=== PATIENT | female | born 1985 | race American Indian/Alaskan Native ===

== ENCOUNTER 2017-11-13 05:47 | Day surgery (SDC) | payer MEDICAID ==
--- NOTE | 2017-11-12 12:18 | History and Physical Report ---
History of Present Illness Date of examination: 11/13/17 History of present illness: Patient has been reassessed/reevaluated. H&P has been reviewed. No interval changes. 32 YOBF with missed initial desired expected management but now desires surgical treatment Vital Signs: Patient Profile: 32 Years Old Female LMP: 07/20/2017 Height: 69 inches Weight: 444 pounds BMI: 65.56 Menstrual History: LMP (date): 07/20/2017 Past History : 3 Term Births: 1 Premature Births: 2 Living Children: 2 Para: 3 Mult. Births: 0 Prev : 2 Aborta: 0 Elect. Ab: 0 Spont. Ab: 0 Ectopics: 0 # 1 Delivery date: 06/26/2000 Weeks Gestation: 23 labor: yes Delivery type: Hours of labor: >36 Delivery location: [place] Infant Sex: Female weight: < 1lb Name: Franklyn Comments: PPROM demise # 2 Delivery date: 07/21/2002 Weeks Gestation: 32 Delivery type: Anesthesia type: spinal Delivery location: [facility] Infant Sex: Male weight: 3-6 Name: Dereck Comments: Cerclage placenta previa bleeding # 3 Delivery date: 12/22/2006 Weeks Gestation: 39 labor: no Delivery type: Anesthesia type: spinal Delivery location: [facility] Infant Sex: Male weight: 16-2 Name: Enzo Comments: 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 of genital herpes: no Partner hx. of genital herpes: no Hx of STD: none Current Allergies: * MAGNESIUM (Critical) Past Medical History: Diabetes (2009) Hypertension Hyperlipidemia Kidney Stone Morbid Obesity Past Surgical History: Cholecystectomy (2000) Kidney stones (2001) (2006) Cerclage (2001) Cerclage (2005) Family History Summary: Other family member - Has Family History of Diabetes - Entered On: 10/02/2017 Other family member - Has Family History of Hypertension - Entered On: 2016 Other family member - Has Family History of Lung Cancer - Entered On: 10/02/2017 Other family member - Has Family History Breast Cancer - Entered On: 10/02/2017 Other family member - Has No Family History of Ovarvian Cancer - Entered On: Social History: Patient is Unemployed administrative support coordinator Risk Factors: Smoked Tobacco Use: Former smoker Cigarettes: Yes -- 1 pack(s) per day, Year started: 2001 Year quit: 2017 Years Since Last Quit: 0 Drug use: no Alcohol use: yes Drinks per day: social Dietary Counseling: pn yes Review of Systems General Denies fever, chills, sweats, anorexia, fatigue, weakness, malaise, weight loss and sleep disorder. Complains of pelvic pain. Denies vaginal discharge, incontinence, dysuria, hematuria, urinary frequency, amenorrhea, menorrhagia, abnormal vaginal bleeding, genital sores, decreased libido, painful periods, painful sex, urinary urgency, hot flashes, vaginal dryness, vaginal itching and vaginal odor. CV Denies chest pains, palpitations, syncope, dyspnea on exertion, orthopnea, PND and peripheral edema. Resp Denies cough, dyspnea at rest, excessive sputum, hemoptysis, wheezing and pleurisy. GI Denies nausea, vomiting, diarrhea, constipation, change in bowel habits, abdominal pain, melena, hematochezia, jaundice, gas/bloating, indigestion/ heartburn, dysphagia and odynophagia. Breast Denies left breast lump, right breast lump, nipple discharge, bloody discharge from nipple, breast pain, abnormal mammogram and breast enlargement. Psych Denies depression, anxiety, irritability and mood swings. [Labs In-House] Past History Past Medical History: other (See HPI) Past Surgical History: Other (See HPI) Family history: other (See HPI) Medications and Allergies Allergies Allergy/AdvReac Type Severity Reaction Status Date / Time magnesium Allergy increased Verified 11/12/17 12:28 heart rate Home Medications Medication Instructions Recorded Confirmed Last Taken Type glipiZIDE [Glucotrol] 10 mg PO BID 12/29/14 11/12/17 Unknown History metFORMIN [Glucophage] 1,000 mg PO BID 12/29/14 11/12/17 Unknown History Oxycodone HCl/Acetaminophen 1 each PO Q4-6H PRN #20 tablet 02/02/15 11/12/17 Unknown Rx [Percocet 10-325 mg] ALBUTEROL NEB's [Proventil] 2.5 mg IH TID PRN 11/12/17 11/12/17 Unknown History Amoxicillin [Trimox CAP] 500 mg PO Q12H 11/12/17 11/12/17 Unknown History Hydroxyzine HCl [Hydroxyzine HCl] 10 mg PO Q12H 11/12/17 11/12/17 Unknown History Lisinopril [Zestril TAB] 40 mg PO DAILY 11/12/17 11/12/17 Unknown History Metoprolol [Lopressor TAB] 50 mg PO DAILY 11/12/17 11/12/17 Unknown History predniSONE [Deltasone] 20 mg PO BID 11/12/17 11/12/17 Unknown History Review of Systems Constitutional: other (See HPI) Exam - Physical Exam Narrative exam: HEENT: normocephalic, no lesions or deformities Neck/Thyroid: supple, thyroid normal Skin no significant abnormal lesions or rashes Chest: respiratory effort normal, clear to auscultation Breasts: skin/areolae normal, no masses, no nipple discharge, no erythema/warmth /tenderness, and axillae normal. 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 Questions answered. Patient desires definitive treatment Patient desires D&C Discussed risk of surgery including infection, bleeding and risk of perforating her uterus. Questions answered. Patient understands and desires to proceed (2) Diabetes 1.5, managed as type 2 Current Visit: No Status: Chronic (3) Morbid obesity with body mass index of 50 or higher Current Visit: No Status: Chronic
[2017-11-13] MEDS ORDERED: VERSED IV NR (06:00)
[2017-11-13] MEDS ORDERED: PEPCID PO NR (06:00)
[2017-11-13] MEDS ORDERED: LACTATED RINGERS 1,000 ML IV SCH (06:00)
[2017-11-13] MEDS ORDERED: SILVER NITRATE TP ONE (07:27)
[2017-11-13] MEDS ORDERED: SUBLIMAZE ONE (07:28)
[2017-11-13] MEDS ORDERED: METHERGINE IM ONE (07:28)
[2017-11-13] MEDS ORDERED: DIPRIVAN 10 MG/ML IV ONE (07:29)
[2017-11-13 07:33] LABS: Basophils # (Auto) 0.1 K/mm3 (0.0-0.1); Basophils % (Auto) 0.6 % (0.0-1.8); Eosinophils % (Auto) 0.1 % (0.0-4.3); Lymphocytes # (Auto) 2.1 K/mm3 (1.2-5.4); Mean Corpuscular HGB Conc 29 % (30-34); Mean Corpuscular Volume 71 fl (79-97); Monocytes # (Auto) 0.6 K/mm3 (0.0-0.8); Monocytes % (Auto) 6.8 % (0.0-7.3); Platelet Count 285 K/mm3 (140-440); Red Blood Count 4.97 M/mm3 (3.65-5.03); Red Cell Distribution Width 19.5 % (13.2-15.2)
[2017-11-13 07:35] VITALS: BP 182/93
[2017-11-13 07:37] LABS: Hematocrit 35.3 % (30.3-42.9); Hemoglobin 10.3 gm/dl (10.1-14.3); Mean Corpuscular Hemoglobin 21 pg (28-32)
--- NOTE | 2017-11-13 07:52 | Event Note ---
Date: 11/13/17 Surgery cancelled due patient's blood sugar> 400. Will treat MAB medically
== END 2017-11-13 05:48 | disposition home or self-care (01) ==
LOC: OR 05:47
PROVIDERS: ATTEND Obstetrics & Gynecology
DX: O02.1 Missed abortion (principal); O24.111 Pre-existing type 2 diabetes mellitus, in pregnancy, first trimester; E11.9 Type 2 diabetes mellitus without complications; O10.911 Unspecified pre-existing hypertension complicating pregnancy, first trimester; O99.281 Endocrine, nutritional and metabolic diseases complicating pregnancy, first trimester; E78.5 Hyperlipidemia, unspecified; O99.211 Obesity complicating pregnancy, first trimester; E66.01 Morbid (severe) obesity due to excess calories; Z68.43 Body mass index [BMI] 50.0-59.9, adult; Z90.49 Acquired absence of other specified parts of digestive tract; Z98.890 Other specified postprocedural states; Z87.891 Personal history of nicotine dependence; Z88.8 Allergy status to other drugs, medicaments and biological substances; Z53.8 Procedure and treatment not carried out for other reasons
CPT/HCPCS: 36415; 82962; 85025; 86850; 86900; 86901; J7120; J2210; J2250; J2704; J3010

== ENCOUNTER 2017-12-10 09:28 | Observation (INO) | payer MEDICAID ==
--- NOTE | 2017-12-10 08:44 | History and Physical Report ---
History of Present Illness Date of examination: 12/10/17 History of present illness: History of Present Illness Date of examination: 11/13/17 History of present illness: 32 YOBF diagnosis with missed patient initially desired expectant management but the condition has persisted also scheduled for a dilatation and curettage on 11/13/2017 but had to be cancelled due to to severe hypoglycemia. She isn't condition has persisted with gestational sac being persistent on serial ultrasounds. Patient has outpatient received Cytotec with no clearance of the uterine contents. Due to the patient's persistent the retained products the possibility of a scar ectopic been present. The patient is now being admitted for methotrexate due to the risks if it is a scar ectopic. . Vital Signs: Patient Profile: 32 Years Old Female LMP: 07/20/2017 Height: 69 inches Weight: 444 pounds BMI: 65.56 Menstrual History: LMP (date): 07/20/2017 Past History : 3 Term Births: 1 Premature Births: 2 Living Children: 2 Para: 3 Mult. Births: 0 Prev : 2 Aborta: 0 Elect. Ab: 0 Spont. Ab: 0 Ectopics: 0 # 1 Delivery date: 06/26/2000 Weeks Gestation: 23 labor: yes Delivery type: Hours of labor: >36 Delivery location: [place] Sex: Female weight: < 1lb Name: Franklyn Comments: PPROM demise # 2 Delivery date: 07/21/2002 Weeks Gestation: 32 Delivery type: Anesthesia type: spinal Delivery location: [facility] Infant Sex: Male weight: 3-6 Name: Dereck Comments: Cerclage placenta previa bleeding # 3 Delivery date: 12/22/2006 Weeks Gestation: 39 labor: no Delivery type: Anesthesia type: spinal Delivery location: [facility] Infant Sex: Male weight: 16-2 Name: Enzo Comments: Cerclage placed [employer] History Operations: Cholecystectomy (2000) Kidney stones Abnormal PAP: negative Uterine Anomaly: negative Infection History Personal hx. of genital herpes: no Partner hx. of genital herpes: no Hx of STD: none Current Allergies: * MAGNESIUM (Critical) Past Medical History: Diabetes (2009) Hypertension Hyperlipidemia Kidney Stone Morbid Obesity Past Surgical History: Cholecystectomy (2000) Kidney stones (2001) (2006) Cerclage (2001) Cerclage (2005) Family History Summary: Other family member - Has Family History of Diabetes - Entered On: 10/02/2017 Other family member - Has Family History of Hypertension - Entered On: 2016 Other family member - Has Family History of Lung Cancer - Entered On: 10/02/2017 Other family member - Has Family History Breast Cancer - Entered On: 10/02/2017 Other family member - Has No Family History of Ovarvian Cancer - Entered On: Social History: Patient is Unemployed administrative receptionist Risk Factors: Smoked Tobacco Use: Former smoker Cigarettes: Yes -- 1 pack(s) per day, Year started: 2001 Year quit: 2016 Years Since Last Quit: 0 Drug use: no Alcohol use: yes Drinks per day: social Review of Systems General Denies fever, chills, sweats, anorexia, fatigue, weakness, malaise, weight loss and sleep disorder. Complains of pelvic pain. Denies vaginal discharge, incontinence, dysuria, hematuria, urinary frequency, amenorrhea, menorrhagia, abnormal vaginal bleeding, genital sores, decreased libido, painful periods, painful sex, urinary urgency, hot flashes, vaginal dryness, vaginal itching and vaginal odor. CV Denies chest pains, palpitations, syncope, dyspnea on exertion, orthopnea, PND and peripheral edema. Resp Denies cough, dyspnea at rest, excessive sputum, hemoptysis, wheezing and pleurisy. GI Denies nausea, vomiting, diarrhea, constipation, change in bowel habits, abdominal pain, melena, hematochezia, jaundice, gas/bloating, indigestion/ heartburn, dysphagia and odynophagia. Breast Denies left breast lump, right breast lump, nipple discharge, bloody discharge from nipple, breast pain, abnormal mammogram and breast enlargement. Psych Denies depression, anxiety, irritability and mood swings. Past History Past Medical History: diabetes, hypertension (see HPI), other Past Surgical History: Other (see HPI) Social history: other (see HPI) Family history: other (see HPI) Medications and Allergies Allergies Allergy/AdvReac Type Severity Reaction Status Date / Time magnesium Allergy increased Verified 12/09/17 09:39 heart rate Home Medications Medication Instructions Recorded Confirmed Last Taken Type glipiZIDE [Glucotrol] 10 mg PO BID 12/29/14 12/09/17 Unknown History metFORMIN [Glucophage] 1,000 mg PO BID 12/29/14 12/09/17 Unknown History Oxycodone HCl/Acetaminophen 1 each PO Q4-6H PRN #20 tablet 02/02/15 12/09/17 Unknown Rx [Percocet 10-325 mg] ALBUTEROL NEB's [Proventil] 2.5 mg IH TID PRN 11/12/17 12/09/17 Unknown History Amoxicillin [Trimox CAP] 500 mg PO Q12H 11/12/17 12/09/17 Unknown History Hydroxyzine HCl [Hydroxyzine HCl] 10 mg PO Q12H 11/12/17 12/09/17 Unknown History Lisinopril [Zestril TAB] 40 mg PO DAILY 11/12/17 12/09/17 Unknown History Metoprolol [Lopressor TAB] 50 mg PO DAILY 11/12/17 12/09/17 Unknown History predniSONE [Deltasone] 20 mg PO BID 11/12/17 12/09/17 Unknown History oxyCODONE /ACETAMINOPHEN [Percocet 1 - 2 tab PO Q4H PRN #30 tablet 12/10/17 Unknown Rx 5/325 mg] Review of Systems Constitutional: other (See HPI) Exam - Physical Exam Narrative exam: HEENT: normocephalic, no lesions or deformities Neck/Thyroid: supple, thyroid normal Skin no significant abnormal lesions or rashes Chest: respiratory effort normal, clear to auscultation Breasts: skin/areolae normal, no masses, no nipple discharge, no erythema/warmth /tenderness, and axillae normal. CV: regular, normal S1-S2, no murmur, no rub, no gallop Abdomen: Obese, normal bowel sounds, soft, nontender, no HSM multiple surgical scar Musculoskeletal: grossly normal ROM in joints, no joint tenderness or muscle weakness Neuro: no gross anomalities Extremities: no clubbing, cyanosis, or edema [employer] Exams Vulva/Vagina: No lesions, normal BUS, normal rugae blood in vault Cervix: No lesions; no cervical motion tenderness Uterus: unable to palpate due to obesity Adnexae: unable to palpate due to obesity Results - Labs CBC & Chem 7: 12/10/17 11:14 Assessment and Plan - Patient Problems (1) Diabetes 1.5, managed as type 2 Current Visit: No Status: Chronic (2) Morbid obesity with body mass index of 50 or higher Current Visit: No Status: Chronic (3) Ectopic Current Visit: Yes Status: Acute Qualifiers: Location of ectopic : other location Intrauterine status : without intrauterine Qualified Code(s): O00.80 - Other ectopic without intrauterine Plan to address problem: Patient with a possible section scar ectopic we'll treat with methotrexate. Discussed with the patient chemotherapy drug with risk of hair loss and possible ulcers GI tract. Explained and these risks of more, will long -term use and with ectopic pregnancies easily at one time dose. Informed patient of the possible cramping pain and vaginal bleeding. All questions answered and patient desires to proceed.
[~2017-12-10 09:28] MED LIST: ANCEF/STERILE WATER 2 GM/20 ML 2 GM/20 ML SYRINGE IV NR; DIPRIVAN 10 MG/ML IV ONE; NACL 0.9% 1000 ML 1,000 ML IV SCH; SUBLIMAZE ONE
[2017-12-10] MEDS ORDERED: METHOTREXATE IM ONE ×3 (10:58→15:00)
[2017-12-10] MEDS ORDERED: NACL 0.45% 1000 ML 1,000 ML IV SCH (11:00)
[2017-12-10] MEDS ORDERED: ZOFRAN IV PRN (11:30)
[2017-12-10 11:47] LABS: BUN/Creatinine Ratio 33; Blood Urea Nitrogen 26 mg/dL (7-17); Calcium 9.3 mg/dL (8.4-10.2); Hemolysis Index 214
[2017-12-10] MEDS ORDERED: DULCOLAX PR PRN (12:00)
[2017-12-10] MEDS ORDERED: NORCO 5/325 PO PRN (12:00)
[2017-12-10] MEDS ORDERED: TYLENOL PO PRN (12:00)
[2017-12-10 17:36] VITALS: BP 141/66
--- NOTE | 2017-12-10 19:14 | Short Stay Summary ---
Short Stay Documentation Date of service: 12/10/17 - History H&P: dictated Past Medical History: diabetes, hypertension (see HPI), other Past Surgical History: Other (see HPI) Social history: other (see HPI) - Allergies and Medications Current Medications: Allergies magnesium Allergy (Verified 12/09/17 09:39) increased heart rate Home Medications Medication Instructions Recorded Confirmed Last Taken Type glipiZIDE [Glucotrol] 10 mg PO BID 12/29/14 12/09/17 Unknown History metFORMIN [Glucophage] 1,000 mg PO BID 12/29/14 12/09/17 Unknown History Oxycodone HCl/Acetaminophen 1 each PO Q4-6H PRN #20 tablet 02/02/15 12/09/17 Unknown Rx [Percocet 10-325 mg] ALBUTEROL NEB's [Proventil] 2.5 mg IH TID PRN 11/12/17 12/09/17 Unknown History Amoxicillin [Trimox CAP] 500 mg PO Q12H 11/12/17 12/09/17 Unknown History Hydroxyzine HCl [Hydroxyzine HCl] 10 mg PO Q12H 11/12/17 12/09/17 Unknown History Lisinopril [Zestril TAB] 40 mg PO DAILY 11/12/17 12/09/17 Unknown History Metoprolol [Lopressor TAB] 50 mg PO DAILY 11/12/17 12/09/17 Unknown History predniSONE [Deltasone] 20 mg PO BID 11/12/17 12/09/17 Unknown History oxyCODONE /ACETAMINOPHEN [Percocet 1 - 2 tab PO Q4H PRN #30 tablet 12/10/17 Unknown Rx 5/325 mg] Active Medications Acetaminophen (Tylenol) 650 mg PO Q4H PRN PRN Reason: Pain MILD(1-3)/Fever >100.5/POSADAS Acetaminophen/Hydrocodone Bitart ([place] 5/325) 2 each PO Q6H PRN PRN Reason: Pain, Moderate (4-6) Last Admin: 12/10/17 15:19 Dose: 2 each Bisacodyl (Dulcolax) 10 mg DE QDAY PRN PRN Reason: Constipation unrelieved by MOM Sodium Chloride (Nacl 0.45% 1000 Ml) 1,000 mls @ 75 mls/hr IV DIRECT ANDREW Last Admin: 12/10/17 12:49 Dose: 75 mls/hr Ondansetron HCl (Zofran) 4 mg IV Q8H PRN PRN Reason: Nausea And Vomiting - Hospital course Hospital course: Patient recieved Methotrexate treatment per protocol. Patient tolerated procedure well per RN - Disposition Condition at discharge: Good Disposition: [id number] TO HOME OR SELFCARE - Discharge Diagnoses (1) Diabetes 1.5, managed as type 2 Status: Chronic (2) Morbid obesity with body mass index of 50 or higher Status: Chronic (3) Ectopic Status: Acute Qualifiers: Location of ectopic : other location Intrauterine status : without intrauterine Qualified Code(s): O00.80 - Other ectopic without intrauterine Short Stay Discharge Plan Activity: advance as tolerated Diet: diabetic Additional Instructions: Patient call office for fever, chills, nausea, vomiting or severe pain. Patient informed will have vaginal bleeding but call if excessive. F/u appt on 12/12/17 Follow up with: DEMARIO GUSMAN MD [Primary Care Provider] - 7 Days Prescriptions: oxyCODONE /ACETAMINOPHEN [Percocet 5/325 mg] 1 - 2 tab PO Q4H PRN #30 tablet PRN Reason: Pain, Moderate
== END 2017-12-10 19:54 | disposition home or self-care (01) ==
LOC: OR 09:28 → 3A 10:34 → OB 10:58
PROVIDERS: ADMIT Obstetrics & Gynecology; ATTEND Obstetrics & Gynecology
DX: O00.90 Unspecified ectopic pregnancy without intrauterine pregnancy (principal); E11.9 Type 2 diabetes mellitus without complications; E66.01 Morbid (severe) obesity due to excess calories; E78.5 Hyperlipidemia, unspecified; Z68.43 Body mass index [BMI] 50.0-59.9, adult
CPT/HCPCS: 36415; 80048; 81025; 82962; 86850; 86900; 86901; 96360; 96361; 96372; G0378; J2704; J9260; J3010